=== PATIENT | male | born 1970 | race Caucasian/White ===

== ENCOUNTER 2020-12-21 21:22 | Inpatient (IN) | payer OTHER ==
[~2020-12-21] VITALS: Ht 188 cm; Wt 148.5 kg
[2020-12-21 22:01] LABS: BASOPHIL 0.2 % (0-2); EOSINOPHIL 1.5 & (0-5); HGB 17.1 g/dl (13.2-18.0); MCHC 32.9 g/dL (32.0-36.0); MCV 88.3 fL (78.0-100.0); MONOCYTE 6.6 % (0-12); MPV 10.8 fL (6.0-9.5); PLT 339 K/uL (150-400); RBC 5.89 M/uL (4.70-6.00); RDW 13.7 % (11.5-14.0); WBC 16.17 K/uL (4.0-10.5)
[2020-12-21 22:05] LABS: INR 2.52 (0.9-1.2); PROTHROMBIN TIME 26.2 SECONDS (11.8-13.4); PTT 40.9 SECONDS (24.4-34.7)
[2020-12-21 22:08] LABS: NEUTROPHIL 51.1 % (41-80)
[2020-12-21 22:10] LABS: PRO-BNP 1055 pg/mL (<125)
[2020-12-21 22:12] LABS: ALBUMIN 3.5 g/dL (3.4-5.0); BILIRUBIN - TOTAL 0.2 mg/dL (0.2-1.0); BUN/CREAT RATIO (CALC) 12.1 RATIO; CREATININE 1.16 mg/dL (0.67-1.17); GLOBULIN (CALCULATION) 4.2 g/dL; POTASSIUM 3.7 mmol/L (3.5-5.1); TOTAL PROTEIN 7.7 g/dL (6.4-8.2)
[2020-12-21 22:21] LABS: LACTIC ACID 11.1 mmol/L (0.4-1.9)
[2020-12-22 01:25] LABS: BILIRUBIN NEGATIVE (NEGATIVE); BLOOD 3+ Ery/uL (NEGATIVE); COLOR YELLOW (YELLOW); GLUCOSE (U) 1+ mg/dL (NORMAL); LEUKOCYTES NEGATIVE Leu/uL (NEGATIVE); NITRITE NEGATIVE (NEGATIVE); PROTEIN 3+ mg/dL (NEGATIVE); UROBILINOGEN 0.2 mg/dL (0.2-1.0); pH 6.5 (5.0-9.0)
[2020-12-22 01:30] LABS: CLARITY HAZY (CLEAR)
[2020-12-22 01:32] LABS: BACTERIA 1+; SQUAMOUS EPITHELIAL CELLS RARE; URINARY RBC 20-50; URINARY WBC 20-50
[2020-12-22 01:33] LABS: GRANULAR CASTS TRACE
--- NOTE | 2020-12-22 05:18 | NUR ---
PATIENT CAME IN ER 12/21/20 ON 100% NRB W/ SAT 82-85%. PATIENT IN RESP DISTRESS, AUDIBLE RALES/RHONCI HEARD. ABG OBTAINED PER DR. GUERIN WITH SEVERE ACIDOSIS. PH 7.00/88.0/ PO2 63.7/22.0 SAT 82% PATIENT WAS INTUBATED VIA GLIDESCOPE WITH #8 ETT, 24@LIP W/O INCIDENT. PATIENT WENT INTO FLASH PULMONARY EDEMA WITH COPIUS LIGHT PINK FORHT SECRETIONS REQUIRING FREQUENT SUCTIONING. SPUTUM OBTAINED AND SENT TO LAB. PATIENT WAS PLACED ON VENT. AC VT600, RATE 20, +7.5, 90%. ABG LATER REPEATED WITH GREAT IMPROVEMENT PH 7.26/50.2/PO2 75.8/22.6/ SAT 94.5% RATE INCREASED TO 22 AND FIO2 WAS TITRATED DOWN. PATIENT WAS TAKEN TO CT AROUND MIDNIGHT 12/22 VIA AMBU BAG AND ARRIVED BACK TO ER ROOM W/O INCIDENT AND PLACED BACK ON VENTILATOR. PATIENT SECRETIONS TAPERING OFF THROUGHOUT THE NIGHT AND IMPROVED BREATH SOUNDS. PATIENT TRANSPORTED TO ICU 2 VIA AMBU BAG AGAIN W/O INCIDENT AROUND 0420 VENT CIRUIT AND FILTERS REPLACED DUE TO SECRETIONS IN TUBING. VENT CURRENT SETTINGS AC VT600, RATE 22, +7.5 AND FIO2 40%. CLEAR ORAL AND ETT SECRETIONS. CLEAR TO DIMINISHED BREATH SOUNDS IN BASES. AM ABG OBTAINED WITH PROPER IMPROVEMENT. PH 7.387/39.7/ PO2 84.9/23.8 SAT 97.7%. MDIs TO START AT 7AM. PATIENT DID TEST POS FOR COVID CONTINUE TO MONITOR.
[2020-12-22] MEDS ORDERED: WARFARIN SODIUM6 MG PO (05:26)
[2020-12-22] MEDS ORDERED: COREG25 MG PO (05:27)
[2020-12-22] MEDS ORDERED: HYDRALAZINE25 MG PO (05:27)
[2020-12-22] MEDS ORDERED: GLUCOTROL10 MG PO (05:28)
[2020-12-22 06:43] LABS: BASOPHIL 0.1 % (0-2); HCT 43.6 % (42.0-52.0); HGB 14.4 g/dl (13.2-18.0); LYMPHOCYTE 10.3 % (15-48); MCH 28.7 pg (25.0-31.0); MCV 86.9 fL (78.0-100.0); MONOCYTE 6.8 % (0-12); MPV 10.3 fL (6.0-9.5); NEUTROPHIL 82.4 % (41-80); PLT 233 K/uL (150-400); RBC 5.02 M/uL (4.70-6.00); RDW 13.8 % (11.5-14.0)
[2020-12-22 06:50] LABS: INR 2.82 (0.9-1.2); PROTHROMBIN TIME 28.7 SECONDS (11.8-13.4); PTT 38.8 SECONDS (24.4-34.7)
[2020-12-22 06:54] LABS: ALBUMIN 2.9 g/dL (3.4-5.0); BILIRUBIN - TOTAL 0.2 mg/dL (0.2-1.0); BUN/CREAT RATIO (CALC) 12.4 RATIO; CREATININE 1.85 mg/dL (0.67-1.17); GLOBULIN (CALCULATION) 3.6 g/dL; MAGNESIUM 2.1 mg/dL (1.8-2.4); POTASSIUM 3.4 mmol/L (3.5-5.1); TOTAL PROTEIN 6.5 g/dL (6.4-8.2)
[2020-12-22] MEDS ORDERED: METFORMIN HCL500 MG PO (09:19)
[2020-12-22] MEDS ORDERED: ISOSORBIDE MONO30 MG PO (09:21)
[2020-12-22] MEDS ORDERED: LOSARTAN POTASSI1 GM PO (09:22)
[2020-12-22] MEDS ORDERED: LOSARTAN-HCTZ1 EAC1 PO (09:25)
[2020-12-23 03:48] LABS: BASOPHIL 0.1 % (0-2); HCT 41.7 % (42.0-52.0); LYMPHOCYTE 9.2 % (15-48); MCH 28.9 pg (25.0-31.0); MCHC 33.6 g/dL (32.0-36.0); MONOCYTE 5.9 % (0-12); MPV 10.1 fL (6.0-9.5); NEUTROPHIL 84.6 % (41-80); PLT 232 K/uL (150-400); RBC 4.85 M/uL (4.70-6.00); RDW 14.1 % (11.5-14.0); WBC 12.18 K/uL (4.0-10.5)
[2020-12-23 03:58] LABS: INR 2.71 (0.9-1.2); PROTHROMBIN TIME 27.8 SECONDS (11.8-13.4)
[2020-12-23 04:17] LABS: ALBUMIN 2.8 g/dL (3.4-5.0); BILIRUBIN - TOTAL 0.2 mg/dL (0.2-1.0); BUN/CREAT RATIO (CALC) 11.7 RATIO; C-REACTIVE PROTEIN 4.9 mg/dL (<=0.90); CREATININE 2.74 mg/dL (0.67-1.17); GLOBULIN (CALCULATION) 3.4 g/dL; MAGNESIUM 2.2 mg/dL (1.8-2.4); PHOSPHORUS 4.4 mg/dL (2.6-4.7); POTASSIUM 3.2 mmol/L (3.5-5.1); TOTAL PROTEIN 6.2 g/dL (6.4-8.2)
--- NOTE | 2020-12-23 13:33 | NUR ---
12/23/20 Patient lives at home with his family. Will monitor for 02 needs.
--- NOTE | 2020-12-23 15:16 | NUR ---
PT FAMILY CAME AND PICKED UP [facility] [employer] TO TAKE HOME
[2020-12-24 05:01] LABS: BASOPHIL 0.1 % (0-2); EOSINOPHIL 0.1 % (0-5); HCT 37.8 % (42.0-52.0); HGB 12.7 g/dl (13.2-18.0); LYMPHOCYTE 17.5 % (15-48); MCH 29.2 pg (25.0-31.0); MCHC 33.6 g/dL (32.0-36.0); MCV 86.9 fL (78.0-100.0); MONOCYTE 8.6 % (0-12); MPV 10.6 fL (6.0-9.5); NEUTROPHIL 73.1 % (41-80); NRBC 0; PLT 212 K/uL (150-400); RBC 4.35 M/uL (4.70-6.00); RDW 14.3 % (11.5-14.0); WBC 10.1 K/uL (4.0-10.5)
[2020-12-24 05:11] LABS: INR 2.42 (0.9-1.2); PROTHROMBIN TIME 25.4 SECONDS (11.8-13.4)
[2020-12-24 05:30] LABS: ALBUMIN 2.5 g/dL (3.4-5.0); BILIRUBIN - TOTAL 0.2 mg/dL (0.2-1.0); BUN/CREAT RATIO (CALC) 15.8 RATIO; C-REACTIVE PROTEIN 2.9 mg/dL (<=0.90); CREATININE 2.21 mg/dL (0.67-1.17); GLOBULIN (CALCULATION) 3.2 g/dL; MAGNESIUM 2.3 mg/dL (1.8-2.4); POTASSIUM 3.3 mmol/L (3.5-5.1); TOTAL PROTEIN 5.7 g/dL (6.4-8.2)
[2020-12-25 06:26] LABS: BASOPHIL 0.2 % (0-2); EOSINOPHIL 0.1 % (0-5); HCT 43.7 % (42.0-52.0); HGB 14.3 g/dl (13.2-18.0); LYMPHOCYTE 20.9 % (15-48); MCH 29.2 pg (25.0-31.0); MCHC 32.7 g/dL (32.0-36.0); MCV 89.2 fL (78.0-100.0); MONOCYTE 9.2 % (0-12); MPV 10.9 fL (6.0-9.5); NEUTROPHIL 68.9 % (41-80); NRBC 0; PLT 222 K/uL (150-400); RDW 14.6 % (11.5-14.0); WBC 12.2 K/uL (4.0-10.5)
[2020-12-25 06:31] LABS: INR 1.62 (0.9-1.2); PROTHROMBIN TIME 18.5 SECONDS (11.8-13.4)
[2020-12-25 06:32] LABS: BUN/CREAT RATIO (CALC) 19.4 RATIO; CREATININE 1.91 mg/dL (0.67-1.17); POTASSIUM 3.8 mmol/L (3.5-5.1)
[2020-12-26 04:36] LABS: BASOPHIL 0.3 % (0-2); EOSINOPHIL 0.1 % (0-5); HGB 13.1 g/dl (13.2-18.0); LYMPHOCYTE 21.1 % (15-48); MCH 29.3 pg (25.0-31.0); MCHC 33.6 g/dL (32.0-36.0); MCV 87.2 fL (78.0-100.0); MONOCYTE 9.6 % (0-12); MPV 10.5 fL (6.0-9.5); NEUTROPHIL 68.2 % (41-80); NRBC 0; PLT 211 K/uL (150-400); RBC 4.47 M/uL (4.70-6.00); WBC 10.8 K/uL (4.0-10.5)
[2020-12-26 04:44] LABS: INR 1.47 (0.9-1.2); PROTHROMBIN TIME 17.1 SECONDS (11.8-13.4)
[2020-12-26 04:53] LABS: BUN/CREAT RATIO (CALC) 24.2 RATIO; CREATININE 1.53 mg/dL (0.67-1.17); POTASSIUM 3.7 mmol/L (3.5-5.1)
[2020-12-27] MEDS ORDERED: MEDROL 4MG DOSEP4 MG PO (08:58)
[2020-12-27] MEDS ORDERED: ISOSORBIDE MON120 MG PO (08:58)
[2020-12-27 09:07] LABS: INR 1.62 (0.9-1.2); PROTHROMBIN TIME 18.5 SECONDS (11.8-13.4)
--- NOTE | 2020-12-27 09:13 | NUR ---
PATIENT AMBULATED IN ROOM ON ROOM AIR, O2 SAT ABOVE 94%, NO DISTRESS NOTED
[2020-12-27 09:41] LABS: BUN/CREAT RATIO (CALC) 28.2 RATIO; CREATININE 1.24 mg/dL (0.67-1.17); POTASSIUM 3.6 mmol/L (3.5-5.1)
[2020-12-27] MEDS ORDERED: WARFARIN SODIUM5 MG PO (10:22)
[2020-12-27] MEDS ORDERED: LOVENOX150 MG/1 M SC (10:22)
--- NOTE | 2020-12-27 11:54 | NUR ---
1045 RIJ CENTRAL LINE REMOVED AT THIS TIME, PRESSURE APPLIED FOR 10 MINUTES, DRESSING PLACED OVER SITE. NO BLEEDING NOTED AT THIS TIME
--- NOTE | 2020-12-27 13:26 | NUR ---
1215 ALL IVS REMOVED, PATIENT GIVEN D/C INSTRUCTIONS AND VERBALIZED UNDERSTANDING
== END 2020-12-27 13:15 | disposition home or self-care (01) | DRG 208 ==
LOC: FER 21:22 → FICU 12-22 03:26 → FTCU 12-25 15:14
PROVIDERS: Allergy & Immunology Allergy; Emergency Medicine Emergency Medical Services; Internal Medicine; Nurse Practitioner; ADMIT Internal Medicine
PROC: 0BH17EZ Insertion of Endotracheal Airway into Trachea, Via Natural or Artificial Opening (ICD-10-PCS; principal; 2020-12-22)
PROC: 5A1945Z Respiratory Ventilation, 24-96 Consecutive Hours (ICD-10-PCS; 2020-12-22)
PROC: XW033E5 Introduction of Remdesivir Anti-infective into Peripheral Vein, Percutaneous Approach, New Technology Group 5 (ICD-10-PCS; 2020-12-22)
PROC: 8E0ZXY6 Isolation (ICD-10-PCS; 2020-12-22)
PROC: XW0DXM6 Introduction of Baricitinib into Mouth and Pharynx, External Approach, New Technology Group 6 (ICD-10-PCS; 2020-12-23)
PROC: 5A09457 Assistance with Respiratory Ventilation, 24-96 Consecutive Hours, Continuous Positive Airway Pressure (ICD-10-PCS; 2020-12-24)
DX: U07.1 COVID-19 (principal); J96.01 Acute respiratory failure with hypoxia; J96.02 Acute respiratory failure with hypercapnia; J12.82 Pneumonia due to coronavirus disease 2019; I21.4 Non-ST elevation (NSTEMI) myocardial infarction; J18.9 Pneumonia, unspecified organism; N17.9 Acute kidney failure, unspecified; D68.2 Hereditary deficiency of other clotting factors; N39.0 Urinary tract infection, site not specified; I50.1 Left ventricular failure, unspecified; Z68.41 Body mass index [BMI] 40.0-44.9, adult; I11.0 Hypertensive heart disease with heart failure; F41.9 Anxiety disorder, unspecified; K21.9 Gastro-esophageal reflux disease without esophagitis; E66.9 Obesity, unspecified; Z78.1 Physical restraint status; Z86.718 Personal history of other venous thrombosis and embolism; Z79.01 Long term (current) use of anticoagulants; Z79.84 Long term (current) use of oral hypoglycemic drugs; Z79.899 Other long term (current) drug therapy; I50.9 Heart failure, unspecified
CPT/HCPCS: 31500; 36415; 36600; 70450; 71045; 71275; 74018; 80048; 80053; 81001; 82728; 82803; 82962; 83036; 83605; 83735; 83880; 84100; 84145; 84484; 85025; 85379; 85610; 85730; 86140; 87040; 87070; 87088; 87205; 93005; 94002; 94010; 94640; 94660; 94667; 94668; 94760; 94762; 96374; 97162; 97166; 97530-GP; 97535; C9113; C9399; J0360; J0456; J0696; J1100; J1170; J1650; J1940; J2060; J2250; J2543; J2704; J3010; J3490; J7030; J7040; J7050; J8540; Q9967; U0002